=== PATIENT | female | born 1960 | race Two or more races ===

== ENCOUNTER 2023-04-05 23:49 | Emergency (ER) | payer OTHER ==
[~2023-04-05] VITALS: Ht 160 cm; Wt 97.1 kg
[2023-04-06] MEDS ORDERED: HYDROcodone-ACET 5/325MG TAB PO ONE (01:45)
[2023-04-06] MEDS ORDERED: NAP500T PO (01:49)
[2023-04-06] MEDS ORDERED: BACL10TA PO (01:49)
== END 2023-04-06 03:22 | disposition home or self-care (01) ==
LOC: ER 23:49
DX: M54.2 Cervicalgia (principal); M25.512 Pain in left shoulder; E11.9 Type 2 diabetes mellitus without complications; Z88.6 Allergy status to analgesic agent; Z88.8 Allergy status to other drugs, medicaments and biological substances
CPT/HCPCS: 72125; 73030